=== PATIENT | female | born 1965 | race Caucasian/White ===

== ENCOUNTER → 2020-11-22 | Day surgery (SDC) | payer OTHER ==
[~2020-11-22] MED LIST: CYMBALTA60 MG PO; PERCOCET 5-3251 EACH PO; PRILOSEC20 MG PO; STOOL SOFTENER100 M1 PO; WELLBUTRIN XL300 MG PO
[2020-11-22 07:16] LABS: HCG (URINE) SCREEN NEGATIVE (NEGATIVE)
== END | disposition home or self-care (01) ==
LOC: FAS 06:50
PROVIDERS: Anesthesiology
DX: Z12.11 Encounter for screening for malignant neoplasm of colon (principal); K21.9 Gastro-esophageal reflux disease without esophagitis; G47.30 Sleep apnea, unspecified; F41.8 Other specified anxiety disorders; Z80.0 Family history of malignant neoplasm of digestive organs; Z79.899 Other long term (current) drug therapy
CPT/HCPCS: 84703; J2704; J7120

== ENCOUNTER → 2022-06-19 | Day surgery (SDC) | payer OTHER ==
[~2022-06-19] VITALS: Ht 162.6 cm; Wt 97.5 kg
[2022-06-19 06:54] LABS: HCG (URINE) SCREEN NEGATIVE (NEGATIVE)
== END | disposition home or self-care (01) ==
LOC: FAS 06:31
PROVIDERS: Anesthesiology
DX: Z12.11 Encounter for screening for malignant neoplasm of colon (principal); K64.8 Other hemorrhoids; E66.9 Obesity, unspecified; Z68.38 Body mass index [BMI] 38.0-38.9, adult; Z80.0 Family history of malignant neoplasm of digestive organs
CPT/HCPCS: 84703; J2704; J7120